=== PATIENT | female | born 1990 | race Caucasian/White ===

== ENCOUNTER 2016-07-29 06:38 | Emergency (ER) | payer SELFPAY ==
[~2016-07-29] VITALS: Ht 165.1 cm; Wt 53.1 kg
[2016-07-29] MEDS ORDERED: PHENAZOPYRIDINE HCL 100 MG TABLET PO ONE (07:15)
--- NOTE | 2016-07-29 07:21 | NUR ---
Patient discharged to home in stable conditon. Written and verbal after care instructions given. Patient verbalizes understanding of instructions.
[2016-07-29] MEDS ORDERED: PHENAZOPYRIDINE HCL 100 MG TABLET ONE (07:24)
[2016-07-29 07:41] LABS: *BLOOD, URINE 3+ (NEGATIVE); *CLARITY,URINE TURBID (CLEAR); *COLOR,URINE Brown (YELLOW); *KETONES,URINE TRACE (NEGATIVE); LEUKOCYTE ESTERASE ,URINE TRACE (NEGATIVE); UGLUCOSE NEGATIVE (NEGATIVE)
[2016-07-29 07:45] LABS: *URINE HCG, QUAL NEGATIVE (NEGATIVE)
[2016-07-29 08:07] LABS: *PROTEIN,URINE 3+ (NEGATIVE)
[2016-07-29 08:08] LABS: *BILIRUBIN,URIN 2+ (NEGATIVE)
[2016-07-29 08:11] LABS: BACTERIA,URINE NONE SEEN /HPF (NONE SEEN); MUCUS,URINE FEW /LPF (0-FEW); NITRITE, URINE POSITIVE (NEGATIVE); RBC,URINE TNTC /HPF (0-3); SQUAMOUS EPITHELIAL CELL,UR FEW /HPF (NONE SEEN); WBC,URINE TNTC /HPF (0-3)
== END 2016-07-29 07:22 | disposition home or self-care (01) ==
LOC: ER 06:42
DX: N39.0 Urinary tract infection, site not specified (principal)
CPT/HCPCS: 84703; 87086; A4663

== ENCOUNTER 2018-02-24 23:05 | Emergency (ER) | payer SELFPAY ==
[~2018-02-24] VITALS: Ht 162.6 cm; Wt 61.2 kg
--- NOTE | 2018-02-24 23:28 | NUR ---
Pt ambulated in ER with stable gait and presents with nausea and pain on left posterior side of head. Pt states that she was sleeping and woke up to a "popping feeling" on the left posterior side of head. Pt states that she also has discomfort on the back of left eye when she gazes. Pt denies head injury, loss of consciousness, and changes in vision. Safe environment implemented.
--- NOTE | 2018-02-24 23:32 | NUR ---
Dr. Tavera at bedside for MSE
[2018-02-24] MEDS ORDERED: ONDANSETRON 4 MG/2 ML VIAL ONE (23:44)
[2018-02-24] MEDS ORDERED: IV NORMAL SALINE 1000 ML BAG IV ONE (23:45)
[2018-02-24] MEDS ORDERED: ONDANSETRON 4 MG/2 ML VIAL IV ONE (23:45)
[2018-02-24 23:56] LABS: BASOPHILS % (AUTO) 0.5 % (0.0-2.0); EOSINOPHILS # (AUTO) 0.2 K/uL (0.0-0.7); EOSINOPHILS % (AUTO) 1.9 % (0.0-7.0); HEMATOCRIT 38.5 % (31.2-41.9); HEMOGLOBIN 13.1 g/dL (10.9-14.3); LYMPHOCYTES # (AUTO) 2.6 K/uL (20.0-40.0); LYMPHOCYTES % (AUTO) 32.9 % (20.5-51.5); MEAN CORPUSCULAR HEMOGLOBIN 31.3 uug (24.7-32.8); MEAN CORPUSCULAR HGB CONC 34 g/dL (32.3-35.6); MEAN CORPUSCULAR VOLUME 91.8 fL (75.5-95.3); MONOCYTES # (AUTO) 0.8 K/uL (2.0-10.0); NEUTROPHILS # (AUTO) 4.3 K/uL (1.8-8.9); NEUTROPHILS % (AUTO) 54.7 % (38.5-71.5); PLATELET COUNT (AUTO) 305 K/uL (179-408); WHITE BLOOD COUNT (AUTO) 7.8 K/uL (3.8-11.8)
[2018-02-25 00:01] LABS: CREATININE 0.7 mg/dL (0.6-1.3); POTASSIUM 3.6 mmol/L (3.5-5.1)
[2018-02-25 00:07] LABS: ALANINE AMINOTRANSFERASE 41 U/L (14-59); ALKALINE PHOSPHATASE 70 U/L (50-136); ASPARTATE AMINOTRANSFERASE 28 U/L (15-37); BILIRUBIN,DIRECT 0.1 mg/dL (0.0-0.2); BILIRUBIN,TOTAL 0.4 mg/dL (0.2-1.0)
[2018-02-25] MEDS ORDERED: SWABABLE VALVE TRANSFER SET EA MC ONE (01:06)
[2018-02-25] MEDS ORDERED: IOHEXOL 350 100 ML INFUS..BTL ONE (01:06)
[2018-02-25] MEDS ORDERED: IV NORMAL SALINE 250 ML IV ONE (01:06)
[2018-02-25] MEDS ORDERED: LORAZEPAM 2 MG/1 ML VIAL IV ONE (02:15)
[2018-02-25] MEDS ORDERED: LORAZEPAM 2 MG/1 ML VIAL ONE (02:16)
--- NOTE | 2018-02-25 02:31 | NUR ---
Facesheet + summary report faxed over to [phone]
--- NOTE | 2018-02-25 02:38 | NUR ---
ER ON PHONE W/ NEURO MD HERNANDEZ
--- NOTE | 2018-02-25 04:13 | NUR ---
Pt resting in bed with mom at bedside. Safe environment implemented.
--- NOTE | 2018-02-25 04:26 | NUR ---
Spoke to [facility], awaiting update from [facility] Room 4413-2 Ext [phone] PRN [facility] Transport ETA for election supervisor: [id number]
--- NOTE | 2018-02-25 04:41 | NUR ---
Report given to FLORES Rasheed- receiving nurse from [facility].
--- NOTE | 2018-02-25 05:58 | NUR ---
Report given to asphalt roller person PRN Unit #101 Patient Tranfers to outside Facility Physician: Dr. Howell Location: [facility]
== END 2018-02-25 06:04 | disposition short-term general hospital (02) ==
LOC: ER 23:08
DX: I72.8 Aneurysm of other specified arteries (principal); F17.200 Nicotine dependence, unspecified, uncomplicated; Z90.89 Acquired absence of other organs
CPT/HCPCS: 36415; 70450; 70496; 80048; 80076; 84702; 85025; 96374; 99285; J2060; Q9967; A4663; J2405; J7030; J7050

== ENCOUNTER 2018-03-03 21:06 | Emergency (ER) | payer MEDICAID ==
[~2018-03-03] VITALS: Ht 162.6 cm; Wt 61.2 kg
--- NOTE | 2018-03-03 21:30 | NUR ---
Pt. ambulated into ED w/ 04/07 L side posterior GARCIA, reports having had coil surgery for L side brain aneurysm on Sunday, no other pertinent hx. reported, denies visual disturbances/weakness, facial expression/extremity strength symmetrical, denies N/V/D, MD in w/ pt. for MSE, will continue to monitor, all pt. needs met,
--- NOTE | 2018-03-03 21:45 | NUR ---
Pt. taken off unit for CT
[2018-03-03] MEDS ORDERED: LORAZEPAM 1 MG TABLET ONE (22:41)
--- NOTE | 2018-03-03 22:44 | NUR ---
Patient discharged to home in stable conditon. Written and verbal after care instructions given. Patient verbalizes understanding of instructions. Pt. d/c per MD orders, d/c papers signed, all belongings w/ pt., left in private vehicle driven by friend, ambulated w/ steady gait off unit, no acute distress,
[2018-03-03] MEDS ORDERED: LORAZEPAM 0.5 MG TABLET PO ONE (22:45)
== END 2018-03-03 22:47 | disposition home or self-care (01) ==
LOC: ER 21:08
DX: R51 Headache (principal); Z90.89 Acquired absence of other organs
CPT/HCPCS: 70450; A4663

== ENCOUNTER 2018-04-06 11:52 | Emergency (ER) | payer MEDICAID ==
[~2018-04-06] VITALS: Ht 162.6 cm; Wt 63.5 kg
--- NOTE | 2018-04-06 12:10 | NUR ---
PATIENT WAS SEEN BY . DC, RX AND F/U INSTRUCTIONS GIVEN AND EXPLAINED TO PATIENT WHO STATES SHE UNDERSTANDS ALL INSTRUCTIONS.
== END 2018-04-06 12:13 | disposition home or self-care (01) ==
LOC: ER 11:52
DX: K08.89 Other specified disorders of teeth and supporting structures (principal); Z90.89 Acquired absence of other organs
CPT/HCPCS: A4663

== ENCOUNTER 2018-04-09 21:42 | Emergency (ER) | payer MEDICAID ==
[~2018-04-09] VITALS: Ht 162.6 cm; Wt 63.5 kg
--- NOTE | 2018-04-09 21:57 | NUR ---
Pt ambulated to ER with c/o headache, neck pain, & blurred vision in rt eye x 1 week. Has hx of brain aneurysm. AAOX4. Speech clear. Able to move all extremities. Hand second vp hr assessment strong. Facial smile symmetric.
--- NOTE | 2018-04-09 22:00 | NUR ---
Dr. Ayse PITTS MD at bedside to evaluate pt.
--- NOTE | 2018-04-09 22:15 | NUR ---
Pt's respiratory unlabored, no s/s of any rep distress.
--- NOTE | 2018-04-09 22:15 | NUR ---
PT bib self. A/Ox4 able to verbalize complaints. Pt c/o blurred vision in right eye for about a week now. Previous medhx of aneurysm per pt.
--- NOTE | 2018-04-09 22:45 | NUR ---
Pt went down to radiology dept for CT scan.
--- NOTE | 2018-04-09 22:59 | NUR ---
Pt back from CT scan. Placed back in room 1A.
--- NOTE | 2018-04-09 23:58 | NUR ---
Patient discharged to home in stable conditon. Written and verbal after care instructions given. Patient verbalizes understanding of instructions. Pt walked out of ER in steady gait & has boyfriend to drive her home. No acute distress noted. All belongings with pt. VSS.
[2018-04-09 23:59] VITALS: BP 127/81
== END 2018-04-10 | disposition home or self-care (01) ==
LOC: ER 21:42
DX: R51 Headache (principal); F11.10 Opioid abuse, uncomplicated; Z90.89 Acquired absence of other organs
CPT/HCPCS: 70450; A4663

== ENCOUNTER 2018-04-22 22:24 | Emergency (ER) | payer MEDICAID ==
[~2018-04-22] VITALS: Ht 162.6 cm; Wt 63.5 kg
--- NOTE | 2018-04-22 22:43 | NUR ---
Pt. ambulated into ED w/ mother for c/o L side GARCIA x 1 hour that radiates down to upper jaw, denies F/C/N/V/D/SOB/dizziness/visual changes, pt. has a history of cerebral aneurysm and had a coil placed surgicall on 2018, pt. was here on for GARCIA on the R side and had CT performed,
--- NOTE | 2018-04-22 22:50 | NUR ---
at bedside for MSE
--- NOTE | 2018-04-22 23:01 | NUR ---
Patient discharged to home in stable conditon. Written and verbal after care instructions given. Patient verbalizes understanding of instructions. Pt. d/c per MD order, all belongings w/ pt., ID band removed, ambulated out of ED w/ steady gait, accompanied by mother, left in private vehicle, NAD
== END 2018-04-22 23:04 | disposition home or self-care (01) ==
LOC: ER 22:24
DX: R51 Headache (principal); F11.10 Opioid abuse, uncomplicated; F17.200 Nicotine dependence, unspecified, uncomplicated; Z90.89 Acquired absence of other organs
CPT/HCPCS: A4663

== ENCOUNTER 2018-06-15 17:46 | Emergency (ER) | payer MEDICAID ==
[~2018-06-15] VITALS: Ht 162.6 cm; Wt 65.8 kg
[2018-06-15] MEDS ORDERED: IBUP-1096 (18:16)
--- NOTE | 2018-06-15 18:34 | NUR ---
GISSELLE COLLADO AT BEDSIDE FOR MSE.
[2018-06-15] MEDS ORDERED: ONDANSETRON ODT 4 MG TAB.RAPDIS ONE (18:44)
[2018-06-15] MEDS ORDERED: ONDANSETRON ODT 4 MG TAB.RAPDIS SL ONE (18:45)
[2018-06-15] MEDS ORDERED: PENICILLIN V POTASSIUM 500 MG TABLET ONE (18:45)
[2018-06-15] MEDS ORDERED: HYDROCODONE/APAP 10-325 MG TABLET PO ONE (18:45)
[2018-06-15] MEDS ORDERED: HYDROCODONE/APAP 10-325 MG TABLET ONE (18:45)
[2018-06-15] MEDS ORDERED: PENICILLIN V POTASSIUM 500 MG TABLET PO ONE (18:45)
--- NOTE | 2018-06-15 18:51 | NUR ---
Patient discharged to home in stable conditon. Written and verbal after care instructions given. Patient verbalizes understanding of instructions. ALL BELONGINGS W/ PT. PT SELF-AMBULATED W/O DIFFICULTY. PT WILL BE DRIVEN HOME BY MOTHER IN PRIVATE VEHICLE.
[2018-06-15 18:52] VITALS: BP 112/76
== END 2018-06-15 18:52 | disposition home or self-care (01) ==
LOC: ER 17:47
DX: K08.89 Other specified disorders of teeth and supporting structures (principal); Z90.89 Acquired absence of other organs
CPT/HCPCS: A4663; Q0162

== ENCOUNTER 2020-09-06 14:10 | Emergency (ER) | payer SELFPAY ==
[~2020-09-06] VITALS: Ht 162.6 cm; Wt 72.6 kg
[~2020-09-06 14:10] MED LIST: IBUP-1096
[2020-09-06 16:32] LABS: *BILIRUBIN,URIN NEGATIVE (NEGATIVE); *BLOOD, URINE NEGATIVE (NEGATIVE); *COLOR,URINE YELLOW (YELLOW); *KETONES,URINE NEGATIVE (NEGATIVE); *UROBILINOGEN,URINE 0.2 E.U./dl (NORMAL); LEUKOCYTE ESTERASE ,URINE TRACE (NEGATIVE); NITRITE, URINE POSITIVE (NEGATIVE); PH,URINE 5.5 (5.0-8.0); UGLUCOSE NEGATIVE (NEGATIVE)
[2020-09-06 16:35] LABS: *URINE HCG, QUAL NEGATIVE (NEGATIVE)
[2020-09-06 16:37] LABS: *CLARITY,URINE HAZY (CLEAR); RBC,URINE 0-3 /HPF (0-3)
[2020-09-06 16:38] LABS: BACTERIA,URINE MANY /HPF (NONE SEEN); SQUAMOUS EPITHELIAL CELL,UR MODERATE /HPF (NONE SEEN)
[2020-09-06] MEDS ORDERED: HYDROMORPHONE 1 MG/1 ML DISP.SYRIN IM ONE (18:00)
[2020-09-06] MEDS ORDERED: ONDANSETRON ODT 4 MG TAB.RAPDIS SL ONE (18:00)
[2020-09-06] MEDS ORDERED: ONDANSETRON ODT 4 MG TAB.RAPDIS ONE (18:15)
[2020-09-06] MEDS ORDERED: HYDROMORPHONE 1 MG/1 ML DISP.SYRIN ONE (18:15)
[2020-09-06] MEDS ORDERED: OXYC-133 PO (18:16)
[2020-09-06] MEDS ORDERED: IBUP-1957 PO (18:16)
--- NOTE | 2020-09-06 18:59 | NUR ---
Patient discharged to home in stable condition. Written and verbal after care instructions given. Patient verbalizes understanding of instructions. Stressed follow up or return to ER for worsening s/s.
== END 2020-09-06 19:00 | disposition home or self-care (01) ==
LOC: ER 14:10
DX: M46.1 Sacroiliitis, not elsewhere classified (principal); Z97.5 Presence of (intrauterine) contraceptive device; Z86.718 Personal history of other venous thrombosis and embolism; R82.71 Bacteriuria; Z87.440 Personal history of urinary (tract) infections
CPT/HCPCS: 72192; 81001; 84703; 87077; 87086; 87186; 96372; 99284; J1170; A4663; Q0162

== ENCOUNTER 2020-09-22 12:52 | Emergency (ER) | payer SELFPAY ==
[~2020-09-22] VITALS: Ht 162.6 cm; Wt 65.8 kg
[~2020-09-22 12:52] MED LIST changes: +IBUP-1957 PO; +OXYC-133 PO
[2020-09-22] MEDS: HYDROMORPHONE 1 MG/1 ML DISP.SYRIN IM ONE (14:02)
[2020-09-22] MEDS: diphenhydrAMINE 50 MG/1 ML VIAL IM ONE (14:03)
[2020-09-22] MEDS ORDERED: HYDROMORPHONE 2 MG/1 ML DISP.SYRIN ONE (14:04)
[2020-09-22] MEDS ORDERED: diphenhydrAMINE 50 MG/1 ML VIAL ONE (14:04)
[2020-09-22] MEDS ORDERED: HYDR-3980 PO (14:46)
[2020-09-22] MEDS ORDERED: ONDA4TAB5 PO (14:46)
[2020-09-22 15:06] VITALS: BP 111/69
--- NOTE | 2020-09-22 15:06 | NUR ---
Patient discharged to home in stable condition. Written and verbal after care instructions given. Patient verbalizes understanding of instructions. Stressed follow up or return to ER for worsening s/s.PT WALKS I NSTEADY GAIT, PT WITH FAMILY MEMBER, PT NOT DRIVING
== END 2020-09-22 15:07 | disposition home or self-care (01) ==
LOC: ER 12:52
DX: M46.1 Sacroiliitis, not elsewhere classified (principal); Z86.79 Personal history of other diseases of the circulatory system
CPT/HCPCS: 96372 ×2; 99284; J1170; J1200; A4663

== ENCOUNTER 2021-08-13 16:46 | Emergency (ER) | payer SELFPAY ==
[~2021-08-13] VITALS: Ht 162.6 cm; Wt 72.6 kg
[~2021-08-13 16:46] MED LIST changes: +HYDR-3980 PO; +ONDA4TAB5 PO
[2021-08-13] MEDS ORDERED: LIDOCAINE HCL 1% 20 ML VIAL ONE (17:06)
[2021-08-13] MEDS ORDERED: LIDOCAINE HCL 1% 20 ML VIAL TP ONE (17:15)
[2021-08-13] MEDS ORDERED: SULF1TAB48 PO (17:22)
[2021-08-13] MEDS ORDERED: CEPH500C2 PO (17:22)
== END 2021-08-13 17:40 | disposition home or self-care (01) ==
LOC: ER 17:08
DX: L02.511 Cutaneous abscess of right hand (principal); Z86.79 Personal history of other diseases of the circulatory system
CPT/HCPCS: 10060; 99283; J3490; A4663

== ENCOUNTER 2021-09-16 20:32 | Emergency (ER) | payer MEDICAID ==
[~2021-09-16] VITALS: Ht 165.1 cm; Wt 72.6 kg
[~2021-09-16 20:32] MED LIST changes: +CEPH500C2 PO; +SULF1TAB48 PO
[2021-09-16] MEDS ORDERED: LIDOCAINE 1%-EPI 1:100,000 20 ML VIAL ONE (20:52)
[2021-09-16] MEDS ORDERED: LIDOCAINE 1%-EPI 1:100,000 20 ML VIAL IJ ONE (21:00)
[2021-09-16] MEDS ORDERED: HYDROCODONE/APAP 5-325MG TABLET PO ONE (21:00)
[2021-09-16] MEDS ORDERED: CEPH500C2 PO (21:10)
[2021-09-16] MEDS ORDERED: DOXY-326 PO (21:10)
[2021-09-16] MEDS ORDERED: HYDROCODONE/APAP 5-325MG TABLET ONE (21:13)
[2021-09-16 21:23] VITALS: BP 122/80
== END 2021-09-16 21:24 | disposition home or self-care (01) ==
LOC: ER 20:32
DX: L02.413 Cutaneous abscess of right upper limb (principal); Z86.718 Personal history of other venous thrombosis and embolism; F17.210 Nicotine dependence, cigarettes, uncomplicated
CPT/HCPCS: 99283; 10060; 87070; J3490; 87077; A4663

== ENCOUNTER 2021-09-20 12:37 | Emergency (ER) | payer MEDICAID ==
[~2021-09-20] VITALS: Ht 162.6 cm; Wt 62.1 kg
[~2021-09-20 12:37] MED LIST changes: +DOXY-326 PO
--- NOTE | 2021-09-20 13:01 | NUR ---
PT IS IN ROOM #2B. DR DALTON EVALUATED THE PT. PT WAS D/C'd TO HOME. D/C INSTRUCTIONS GIVEN TO THE PT BY DR DALTON.
[2021-09-20 13:22] VITALS: BP 129/76
== END 2021-09-20 13:23 | disposition home or self-care (01) ==
LOC: ER 12:37
DX: Z48.817 Encounter for surgical aftercare following surgery on the skin and subcutaneous tissue (principal); L02.413 Cutaneous abscess of right upper limb; B95.61 Methicillin susceptible Staphylococcus aureus infection as the cause of diseases classified elsewhere; F17.210 Nicotine dependence, cigarettes, uncomplicated
CPT/HCPCS: A4663